=== PATIENT | female | born 1985 | race Caucasian/White ===

== ENCOUNTER 2017-12-06 22:40 | Emergency (ER) | payer SELFPAY ==
--- NOTE | 2017-12-06 23:36 | ER ---
Nurse's Notes [facility] Name: Elsy Turner Age: 32 yrs Sex: Female : 1985 Arrival Date: 12/06/2017 Time: 22:46 Bed 27 Private MD: None, None Diagnosis: Rotator cuff tear or rupture, not specified as traumatic Presentation: 12/06 23:01 Presenting complaint: Patient states: Patient reports pain in the left shoulder for ao about a year. Today the pain become like sharp and it got worst. Transition of care: patient was not received from another setting of care. Onset of symptoms is unknown. Risk Assessment: Do you want to hurt yourself or someone else? Patient reports no desire to harm self or others. Initial Sepsis Screen: Does the patient meet any 2 criteria? No. Patient's initial sepsis screen is negative. Does the patient have a suspected source of infection? No. Patient's initial sepsis screen is negative. Care prior to arrival: None. 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 - Social history:: Smoking status: Patient uses tobacco products, smokes one-half pack cigarettes per day, Patient uses street drugs, marijuana, Methamphetamine (Meth) IV drugs, Patient/guardian denies using alcohol. - Ebola Screening: : Patient negative for fever greater than or equal to 101.5 degrees Fahrenheit, and additional compatible Ebola Virus Disease symptoms Patient denies exposure to infectious person Patient denies travel to an Ebola-affected area in the 21 days before illness onset. Screenin/04 00:03 Abuse screen: Denies threats or abuse. Nutritional screening: No deficits noted. eb1 Tuberculosis screening: No symptoms or risk factors identified. Fall Risk None identified. Assessment: 12/06 23:33 General: Appears in no apparent distress. Behavior is cooperative, appropriate for age, eb1 flighty. Pain: Complains of pain in anterior aspect of right shoulder and chest. Neuro: No deficits noted. Cardiovascular: No deficits noted. Respiratory: No deficits noted. GI: No deficits noted. : No deficits noted. Vital Signs: 23:05 BP 119 / 79; Pulse 87; Resp 18; Temp 98.3(TE); Pulse Ox 99% on R/A; Weight 110.22 kg ao (M); Height 5 ft. 10 in. (177.80 cm) (M); Pain 6/10; 23:05 Body Mass Index 34.87 (110.22 kg, 177.80 cm) ao ED Course: 22:46 Patient arrived in ED. es 22:46 None, None is Private Physician. es 23:03 Triage completed. ao 23:07 Arm band placed on right wrist. Patient placed in an exam room, on a stretcher, on ao oxygen, Patient notified of wait time. 23:25 Shaka Stanley MD is Attending Physician. tw4 23:34 Song Cook MD is Referral Physician. tw4 23:34 Izaiah Walsh MD is Referral Physician. tw4 12/07 00:03 Patient has correct armband on for positive identification. eb1 00:03 No provider procedures requiring assistance completed. Patient did not have IV access eb1 during this emergency room visit. Sling applied to right arm. Administered Medications: No medications were administered Outcome: 12/06 23:35 Discharge ordered by . tw4 12/07 00:03 Discharged to home ambulatory. eb1 Condition: stable Discharge instructions given to patient, Instructed on discharge instructions, follow up and referral plans. medication usage, Demonstrated understanding of instructions, follow-up care, medications, Prescriptions given X 2. 00:04 Patient left the ED. eb1 Signatures: Jennifer Rosenberg Alex, RN RN ao Shaka Stanley MD MD tw4 Rayna Morris RN RN eb1
--- NOTE | 2017-12-07 00:04 | EDPHYS ---
Physician Documentation [facility] Name: Elsy Turner Age: 32 yrs Sex: Female : 1985 Arrival Date: 12/06/2017 Time: 22:46 Bed 27 Private MD: None, None ED Physician Shaka Stanley HPI: 12/06 23:56 This 32 yrs old Female presents to ER via Ambulatory with complaints of tw4 Shoulder Pain, Arm Pain, Hand Pain. 23:56 The patient or guardian complains of an injury. right shoulder. Context: The problem tw4 was sustained at home, resulted from from a chronic condition. Onset: The symptoms/episode began/occurred today. Modifying factors: the symptoms are alleviated by nothing. The symptoms are aggravated by nothing. Severity of symptoms: At their worst the symptoms were moderate, in the emergency department the symptoms are unchanged. The patient has not experienced similar symptoms in the past. 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 - Social history:: Smoking status: Patient uses tobacco products, smokes one-half pack cigarettes per day, Patient uses street drugs, marijuana, Methamphetamine (Meth) IV drugs, Patient/guardian denies using alcohol. - Ebola Screening: : Patient negative for fever greater than or equal to 101.5 degrees Fahrenheit, and additional compatible Ebola Virus Disease symptoms Patient denies exposure to infectious person Patient denies travel to an Ebola-affected area in the 21 days before illness onset. ROS: 23:56 Constitutional: Negative for fever, chills, and weight loss. tw4 23:56 MS/extremity: Positive for injury or acute deformity, decreased range of motion, pain, Negative for abrasion, bite, contusion. Exam: 23:56 Constitutional: This is a well developed, well nourished patient who is awake, alert, tw4 and in no acute distress. Head/Face: Normocephalic, atraumatic. Chest/axilla: Normal chest wall appearance and motion. Nontender with no deformity. No lesions are appreciated. Cardiovascular: Regular rate and rhythm with a normal S1 and S2. No gallops, murmurs, or rubs. Normal PMI, no JVD. No pulse deficits. Respiratory: Lungs have equal breath sounds bilaterally, clear to auscultation and percussion. No rales, rhonchi or wheezes noted. No increased work of breathing, no retractions or nasal flaring. Abdomen/GI: Soft, non-tender, with normal bowel sounds. No distension or tympany. No guarding or rebound. No evidence of tenderness throughout. MS/ Extremity: Pulses equal, no cyanosis. Neurovascular intact. Full, normal range of motion. Neuro: Awake and alert, GCS 15, oriented to person, place, time, and situation. Cranial nerves II-XII grossly intact. Motor strength 5/5 in all extremities. Sensory grossly intact. Cerebellar exam normal. Normal gait. Vital Signs: 23:05 BP 119 / 79; Pulse 87; Resp 18; Temp 98.3(TE); Pulse Ox 99% on R/A; Weight 110.22 kg ao (M); Height 5 ft. 10 in. (177.80 cm) (M); Pain 6/10; 23:05 Body Mass Index 34.87 (110.22 kg, 177.80 cm) ao MDM: 23:25 Patient medically screened. tw4 Administered Medications: No medications were administered Disposition: 12/06/17 23:35 Discharged to Home. Impression: Rotator cuff tear or rupture, not specified as traumatic. - Condition is Stable. - Discharge Instructions: Rotator Cuff Injury, Rotator Cuff Tendinitis. - Prescriptions for Ibuprofen 800 mg Oral Tablet - take 1 tablet by ORAL route every 8 hours As needed take with food; 30 tablet. Tylenol- Codeine #3 300-30 mg Oral Tablet - take 2 tablet by ORAL route every 6 hours As needed; 6 tablet. - Medication Reconciliation Form, Thank You Letter, Antibiotic Education, Prescription Opioid Use form. - Follow up: Private Physician; When: As needed; Reason: Recheck today's complaints, Continuance of care, Re-evaluation by your physician. Follow up: Song Cook MD; When: As needed; Reason: Recheck today's complaints, Continuance of care, Re-evaluation by your physician. Follow up: Izaiah Walsh MD; When: As needed; Reason: Recheck today's complaints, Continuance of care, Re-evaluation by your physician. - Problem is new. - Symptoms have improved. Signatures: Sarthak Alicea, RN RN Shaka Guthrie MD MD tw4 Rayna Morris RN RN eb1 Corrections: (The following items were deleted from the chart) 12/07 00:04 12/06 23:35 12/06/2017 23:35 Discharged to Home. Impression: Rotator cuff tear or eb1 rupture, not specified as traumatic. Condition is Stable. Forms are Medication Reconciliation Form, Thank You Letter, Antibiotic Education, Prescription Opioid Use. Follow up: Private Physician; When: As needed; Reason: Recheck today's complaints, Continuance of care, Re-evaluation by your physician. Follow up: Song Cook; When: As needed; Reason: Recheck today's complaints, Continuance of care, Re-evaluation by your physician. Follow up: Izaiah Walsh; When: As needed; Reason: Recheck today's complaints, Continuance of care, Re-evaluation by your physician. Problem is new. Symptoms have improved. tw4
== END 2017-12-07 00:04 | disposition home or self-care (01) ==
LOC: ER 22:40
DX: M75.101 Unspecified rotator cuff tear or rupture of right shoulder, not specified as traumatic (principal); F17.210 Nicotine dependence, cigarettes, uncomplicated; Z88.6 Allergy status to analgesic agent; Z91.040 Latex allergy status; X58.XXXA Exposure to other specified factors, initial encounter; Y93.9 Activity, unspecified; Y92.9 Unspecified place or not applicable; Y99.9 Unspecified external cause status
CPT/HCPCS: 99284